=== PATIENT | male | born 1940 ===

== ENCOUNTER 2017-05-04 08:27 | Emergency (ER) | payer MEDICARE ==
[2017-05-04 08:38] VITALS: O2SAT 99
[2017-05-04 09:29] LABS: BASO # 0.1 K/uL (0.0-0.2); BASO % 0.7 % (0.0-2.0); EOS # 0.1 K/uL (0.0-0.7); EOS % 1.7 % (0.0-4.0); HEMOGLOBIN 15.6 g/dL (12.0-18.0); LYMPH # 2.4 K/uL (1.0-4.3); LYMPH % 34.9 % (20.0-40.0); MEAN CELL VOLUME 91.2 fL (80.0-94.0); MEAN CORPUSCULAR HEMOGLOBIN 31.2 pg (27.0-31.0); MEAN CORPUSCULAR HGB CONC 34.3 g/dL (33.0-37.0); MEAN PLATELET VOLUME 10.3 fL (7.2-11.7); MONO # 0.6 K/uL (0.0-0.8); MONO % 8.7 % (0.0-10.0); NEUT # 3.7 K/uL (1.8-7.0); RBC 4.99 Mil/uL (4.40-5.90); RED CELL DISTRIBUTION WIDTH 14.6 % (11.5-14.5); WHITE BLOOD COUNT 6.9 K/uL (4.8-10.8)
[2017-05-04 09:32] LABS: SQUAMOUS EPITHIAL < 1 /hpf (0-5); URINE BILIRUBIN NEGATIVE (NEGATIVE); URINE BLOOD NEGATIVE (NEGATIVE); URINE CLARITY Hazy (Clear); URINE COLOR Yellow (YELLOW); URINE GLUCOSE (UA) 3+ mg/dL (Normal); URINE LEUKOCYTE ESTERASE NEG Leu/uL (Negative); URINE PROTEIN NEGATIVE (NEGATIVE); URINE UROBILINOGEN NORMAL mg/dL (0.2-1.0)
--- NOTE | 2017-05-04 09:37 | RAD ---
HISTORY: COMPARISON: No prior. TECHNIQUE: Chest PA and lateral FINDINGS: LINES AND TUBES: None. LUNG AND PLEURA: There is pulmonary hyperinflation and peribronchial cuffing with streaky opacities in the lungs. No focal consolidation. HEART AND MEDIASTINUM: The heart is not enlarged. The hilar and mediastinal contours are within normal limits. SKELETAL STRUCTURES: The bony structures are within normal limits for the patient's age. VISUALIZED UPPER ABDOMEN: Normal. OTHER FINDINGS: None. IMPRESSION: No active pulmonary disease. COPD.
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
[2017-05-04 09:49] LABS: ALB/GLOB RATIO 1.5 (1.0-2.1); ALBUMIN 3.8 g/dL (3.5-5.0); ALT/SGPT 21 U/L (21-72); AST/SGOT 43 U/L (17-59); BLOOD UREA NITROGEN 21 mg/dL (9-20); CALCIUM 9.2 mg/dl (8.6-10.4); GFR AFRICAN-AMERICAN > 60; GFR NON-AFRICAN AMERICAN > 60
[2017-05-04 09:51] LABS: BARBITURATES, UR NEGATIVE (NEGATIVE); BENZODIAZEPINES, UR NEGATIVE (NEGATIVE); OPIATES, UR NEGATIVE (NEGATIVE); PHENCYCLIDINE, UR NEGATIVE (NEGATIVE)
--- NOTE | 2017-05-04 09:53 | CT ---
PROCEDURE: CT HEAD WITHOUT CONTRAST. HISTORY: Altered mental status COMPARISON: None available. TECHNIQUE: Axial computed tomography images were obtained through the head/brain without intravenous contrast. Radiation dose: Total exam DLP = 870.26 mGy-cm. This CT exam was performed using one or more of the following dose reduction techniques: Automated exposure control, adjustment of the mA and/or kV according to patient size, and/or use of iterative reconstruction technique. FINDINGS: HEMORRHAGE: No intracranial hemorrhage. BRAIN: There is an old lacunar infarction in the left caudate head. There are mild chronic microangiopathic changes. There is no mass, mass effect or abnormal extra-axial fluid collection. There are coarse atherosclerotic calcifications in the cavernous carotid arteries. VENTRICLES: There is moderate age-related global parenchymal volume loss and proportionate enlargement of the ventricles and cortical sulci. CALVARIUM: The skull base and calvarium are normal. PARANASAL SINUSES: Predominantly clear. MASTOID AIR CELLS: Predominantly clear. OTHER FINDINGS: None. IMPRESSION: No acute intracranial abnormality. Old lacunar infarction in the left caudate head. Mild chronic microangiopathic changes and moderate age-related global parenchymal volume loss.
[2017-05-04] MEDS ORDERED: (Novolin R) Insulin Human Regular 100 units/ml vial IV ONE (10:09)
[2017-05-04] MEDS ORDERED: (Novolin R) Insulin Human Regular 100 units/ml vial ONE (10:22)
--- NOTE | 2017-05-04 12:19 | PCM.PSYCH ---
Initial Psychiatric Evaluation - Initial Psychiatric Evaluation Type of Admission: Voluntary Legal Status: Capacity Chief Complaint (in patient's own words): I am feeling miles.' History of Present Illness and Precipitating Events: This is a 76 y/o male brought to ER by family for confusion, agitation, and aggressive behavior which has been occurring for the past year. Today pt was consulted. Family reports that pt is becoming somewhat demented and forgetful. He at times becomes irritable and agitated. Today pt became mad at something and family got concerned and escorted pt to the hospital for evaluation. Patient appeared oriented to time, place and person. He denies any depressed and irritable mood, and denies any feelings of hopelessness and helplessness. He denies any AVH or any psychotic symptoms. Patient denies any manic symptoms. Current Medications: Active Medications Generic Name Dose Route Start Last Admin Trade Name Freq PRN Reason Stop Dose Admin Haloperidol 2 mg 05/04/17 12:15 Haldol PO Q8 PRN Moderate Agitation Lorazepam 1 mg 05/04/17 12:15 Ativan PO Q8 PRN Anxiety Past Psychiatric History - Past Psychiatric History Previous Treatment History: None Pertinent Medical Hx (Current Medical&Sleep Prob, Allergies): Allergies Allergy/AdvReac Type Severity Reaction Status Date / Time No Known Allergies Allergy Verified 05/04/17 08:33 Glimepiride [amaRYL] 4 mg PO BID 05/04/17 Metformin HCl [Glucophage] 1,000 mg PO BID 05/04/17 Pioglitazone HCl 45 mg PO DAILY 05/04/17 Sertraline HCl 50 mg PO DAILY 05/04/17 Review of Systems - Review of Systems All systems: reviewed and no additional remarkable complaints except - Psychiatric Psychiatric: Anxiety, Irritability. absent: Suicidal Ideation Mental Status Examination - Personal Presentation Personal Presentation: Looks stated age - Affect Affect: Broad - Motor Activity Motor Activity: Calm - Reliability in Providing Information Reliability in Providing Information: Good - Speech Speech: Organized - Mood Mood: Anxious - Formal Thought Process Formal Thought Process: No Impairment - Obsessions/Compulsions Obsessions: No Compulsions: No - Cognitive Functions Orientation: Person, Place, Situation, Time Sensorium: Alert Attention/Concentration: Attentive Abstract Thinking: [place] Estimate of Intelligence: Below average Judgement: Imparied, as evidence by: Poor judgement, Intact, as evidence by: Insight regarding need for hospitalization - Risk Risk: Diminished functioning - Strength & Assets Inventory Strength & Assets Inventory: Family support DSM 5 DX - DSM 5 DSM 5 Diagnosis: Mood disorder NOS - Recommended/Plan of Treatment Treatment Recommendations and Plan of Treatment: Pt psychiatrically stable and clear for discharge.
[2017-05-04] MEDS ORDERED: Divalproex 250 mg DR Tab PO SCH (12:30)
[2017-05-04] MEDS ORDERED: Divalproex 250 mg DR Tab PO ONE (12:42)
[2017-05-04 13:09] VITALS: BP 140/62; PULSE 84; RESP 18; TEMP 97.4
--- NOTE | 2017-05-06 22:42 | CARD ---
APPROVED REPORT EKG Measurement Heart [id number] MT 130P-1 [id number] <Conclusion> Normal sinus rhythm Normal ECG
== END 2017-05-04 13:09 | disposition home or self-care (01) ==
LOC: C.ER 08:27
DX: F39 Unspecified mood [affective] disorder (principal)